=== PATIENT | female | born 1955 | race Caucasian/White ===

== ENCOUNTER 2017-08-28 07:15 | Emergency (ER) | payer BC ==
[2017-08-28 07:29] VITALS: BP 94/55
--- NOTE | 2017-08-28 08:04 | UC ---
Lower Extremity/Ankle HPI - HPI Summary HPI Summary: 62 yo WF h/o osteoporosis c/o right upper foot pain x2days. Had a stress fx secondary to osteoporosis 2 years ago and wonders if it is the same. Denies trauma or paresthesias - History of Current Complaint Chief Complaint: UCLowerExtremity Stated Complaint: RIGHT FOOT INJURY Time Seen by Provider: 08/28/17 07:24 Hx Obtained From: Patient Onset/Duration: Sudden Onset Severity Initially: Moderate Aggravating Factor(s): Ambulation Alleviating Factor(s): Nothing Able to Bear Weight: Yes - Allergies/Home Medications Allergies/Adverse Reactions: Allergies Allergy/AdvReac Type Severity Reaction Status Date / Time Erythromycin Allergy Severe persistant Verified 08/28/17 07:29 vomitting Home Medications: Home Medications Docusate CAP* [Colace Cap*] 100 mg PO DAILY 08/28/17 [History Confirmed 08/28/17 ] PMH/Surg Hx/FS Hx/Imm Hx - Additional Past Medical History Additional PMH: Osteoporosis - Surgical History Surgical History: Yes Surgery Procedure, Year, and Place: Repair of prolapsed bladder/RECTUM-2002, 2009. Abdominal Hysterectomy -2002. Lumpectomy Left breast 2001 - Family History Known Family History: Positive: Cardiac Disease, Hypertension - Social History Alcohol Use: None Substance Use Type: None Smoking Status (MU): Never Smoked Tobacco Have You Smoked in the Last Year: No - Immunization History Most Recent Influenza Vaccination: Fall 2016 Review of Systems Constitutional: Negative Skin: Negative Eyes: Negative ENT: Negative Respiratory: Negative Cardiovascular: Negative Gastrointestinal: Negative Genitourinary: Negative Motor: Negative Neurovascular: Negative Musculoskeletal: Other: - see HPI Neurological: Negative Psychological: Negative All Other Systems Reviewed And Are Negative: Yes Physical Exam Triage Information Reviewed: Yes Vital Signs: Initial Vital Signs Temp 35.9 C 08/28/17 07:23 Pulse 70 08/28/17 07:23 Resp 17 08/28/17 07:23 BP 94/55 08/28/17 07:23 Pulse Ox 98 08/28/17 07:23 Eye Exam: Normal ENT Exam: Normal Dental Exam: Normal Neck exam: Normal Neck: Positive: 1 Respiratory Exam: Normal Cardiovascular Exam: Normal Abdominal Exam: Normal Musculoskeletal: Positive: Other: - mild TTP over dorsum of right foot on mid MT of 2-4 digits, 2+ DP, NVI. Able to bear weight with some discomfort Neurological Exam: Normal Psychological Exam: Normal Skin Exam: Normal Lower Extremity Course/Dx - Course Course Of Treatment: XR of right foot- no fx, pain may be due to evolving arthralgia, advised to consult podiatry if pain persists - Differential Dx/Diagnosis Provider Diagnoses: foot pain Discharge - Discharge Plan Condition: Stable Disposition: HOME Patient Education Materials: Arthralgia (ED) Referrals: Irlanda Zuleta MD [Primary Care Provider] - Additional Instructions: as tolerated
--- NOTE | 2017-08-28 08:05 | RAD ---
HISTORY: Right foot pain COMPARISONS: August 01, 2014 VIEWS: 3, Frontal, lateral, and oblique views of the right foot FINDINGS: BONE DENSITY: Normal. BONES: There is no displaced fracture. JOINTS: There is osteoarthritis of the first MTP joint. ALIGNMENT: There is hallux valgus. SOFT TISSUES: Unremarkable. OTHER FINDINGS: None. IMPRESSION: HALLUX VALGUS WITH OSTEOARTHRITIS OF THE FIRST MTP JOINT. NO ACUTE OSSEOUS INJURY. IF SYMPTOMS PERSIST, RECOMMEND REPEAT IMAGING
== END 2017-08-28 08:30 | disposition home or self-care (01) ==
LOC: UCEAST 07:15
DX: M79.671 Pain in right foot (principal)
CPT/HCPCS: 99211; G0463